=== PATIENT | female | born 1960 | race Caucasian/White ===

== ENCOUNTER 2018-11-08 06:48 | Emergency (ER) | payer BC, MEDICAID ==
[2018-11-08] MEDS ORDERED: TOPICAL LIDOCAINE W/ EPI 5 ML TOP ONE (07:29)
--- NOTE | 2018-11-08 07:29 | Emergency Department Record ---
History of Present Illness - General Chief Complaint: Laceration(s) Stated Complaint: RIGHT FOOT LAC Time Seen by Provider: 11/08/18 07:22 Source: Patient Mode of Arrival: Ambulatory - History of Present Illness Initial Commments: The patient cut the top of her right foot about an hour ago as she was attempting to put her foot onto the sapna runner of her truck. Tetanus is UTD f rom 2015. Onset/Timin -: Minutes(s) Place: Home Context: Accidental Associated Symptoms: None - [place] Coma Scale Eye Response: (4) Open spontaneously Motor Response: (6) Obeys commands Verbal Response: (5) Oriented Andreina Total: 15 - Related Data Hx Tetanus Toxoid Vaccination: Yes Year of Tetanus Vaccination: 2016 Patient Tetanus UTD (within 5 yrs): Yes Home Medications Medication Instructions Recorded Confirmed Last Taken No Home Med [NO HOME MEDS] 11/08/18 11/08/18 Unknown Allergies Allergy/AdvReac Type Severity Reaction Status Date / Time ceftriaxone [From Rocephin] Allergy DIFFICULTY Verified 11/08/18 06:52 BREATHING cephalexin [From Keflex] Allergy DIFFICULTY Verified 11/08/18 07:11 BREATHING levofloxacin [From Levaquin] Allergy DIFFICULTY Verified 11/08/18 06:52 BREATHING Penicillins Allergy DIFFICULTY Verified 11/08/18 06:52 BREATHING Travel Screening - Travel/Exposure Within Last 30 Days Have you traveled within the last 30 days?: No - Travel Symptoms Symptom Screening: None Review of Systems Reviewed: No additional complaints except as noted below Constitutional: Reports: As per HPI. Denies: Chills, Fever, Malaise, Night sweats, Weakness, Weight change Eyes: Reports: As per HPI. Denies: Eye discharge, Eye pain, Photophobia, Vision change ENT: Reports: As per HPI. Denies: Congestion, Dental pain, Ear pain, Epistaxis, Hearing loss, Throat pain Respiratory: Reports: As per HPI. Denies: Cough, Dyspnea, Hemoptysis, Stridor, Wheezes Cardiovascular: Reports: As per HPI. Denies: Arrhythmia, Chest pain, Dyspnea on exertion, Edema, Murmurs, Orthopnea, Palpitations, Paroxysmal nocturnal dyspnea, Rheumatic Fever, Syncope Endocrine: Reports: As per HPI. Denies: Fatigue, Heat or cold intolerance, Polydipsia, Polyuria Gastrointestinal: Reports: As per HPI. Denies: Abdominal pain, Constipation, Diarrhea, Hematemesis, Hematochezia, Melena, Nausea, Vomiting Genitourinary: Reports: As per HPI. Denies: Abnormal menses, Discharge, Dyspareunia, Dysuria, Frequency, Hematuria, Incontinence, Retention, Urgency Musculoskeletal: Reports: As per HPI. Denies: Arthralgia, Back pain, Gout, Joint swelling, Myalgia, Neck pain Skin: Reports: As per HPI. Denies: Bruising, Change in color, Change in hair/nails, Lesions, Pruritus, Rash Neurological: Reports: As per HPI. Denies: Abnormal gait, Confusion, Headache, Numbness, Paresthesias, Seizure, Tingling, Tremors, Vertigo, Weakness Psychiatric: Reports: As per HPI. Denies: Anxiety, Auditory hallucinations, Depression, Homicidal thoughts, Suicidal thoughts, Visual hallucinations Hematological/Lymphatic: Reports: As per HPI. Denies: Anemia, Blood Clots, Easy bleeding, Easy bruising, Swollen glands Past Medical History - SOCIAL HISTORY Smoking Status: Never smoker Alcohol Use: None Drug Use: None - RESPIRATORY Hx Respiratory Disorders: No - CARDIOVASCULAR Hx Cardio Disorders: No - NEURO Hx Neuro Disorders: No - GI Hx GI Disorders: No - Hx Genitourinary Disorders: No - ENDOCRINE Hx Endocrine Disorders: No - MUSCULOSKELETAL Hx Musculoskeletal Disorders: No - PSYCH Hx Psych Problems: No - HEMATOLOGY/ONCOLOGY Hx Hematology/Oncology Disorders: No Family Medical History Any Significant Family History?: No Family Hx Comment (NOT TO BE USED IN PLACE OF ITEMS BELOW): denies Physical Exam - General General Appearance: Alert, Oriented x3, Cooperative, Mild distress - Head Head exam: Normal inspection - Eye Eye exam: Normal appearance, PERRL, EOMI. negative: Conjunctival injection Pupils: Normal accommodation - ENT ENT exam: Normal exam, Mucous membranes moist, Normal external ear exam Ear exam: Normal external inspection. negative: External canal tenderness Nasal Exam: Normal inspection. negative: Discharge, Sinus tenderness Mouth exam: Normal external inspection, Tongue normal Teeth exam: Normal inspection. negative: Dental caries Throat exam: Normal inspection. negative: Tonsillar erythema, Tonsillar exudate - Neck Neck exam: Normal inspection, Full ROM. negative: Lymphadenopathy, Tenderness - Respiratory Respiratory exam: negative: Respiratory distress - Cardiovascular Cardiovascular Exam: Regular rate, Normal rhythm, Normal heart sounds - GI/Abdominal GI/Abdominal exam: Soft, Normal bowel sounds. negative: Tenderness - Rectal Rectal exam: Deferred - exam: Deferred - Extremities Extremities exam: Normal inspection, Full ROM, Normal capillary refill. negative: Calf tenderness, Pedal edema, Tenderness Image of Feet: 1 - linear laceration dorsal foot 8 cm - Back Back exam: Reports: Normal inspection, Full ROM. Denies: Muscle spasm, Rash noted, Tenderness - Neurological Neurological exam: Alert, Normal gait, Oriented X3, Reflexes normal - Psychiatric Psychiatric exam: Normal affect, Normal mood - Skin Skin exam: Dry, Intact, Normal color, Warm Course Vital Signs 11/08/18 06:54 Temperature 98.8 F Pulse Rate [ 91 H Pulse Ox Probe] Respiratory 18 Rate Blood Pressure 150/103 [Left Arm] Pulse Ox 99 - Reevaluation(s) Reevaluation #1: PROCEDURE: Sterile technique, Prepped, draped, copious irrigation with NS, sub Q depth, no tendons, no FB's, closed skin with #7 running 4.0 prolene. Patient tolerated procedure well. 11/08/18 08:12 Reevaluation #2: Discussed with patient regarding antibiotics for this wound. Patient in agreement that no antibiotics due to her allergic reactions to them. She will watchn diligently for signs of infection. 11/08/18 08:19 Medical Decision Making - Management Options MDM Management: No Additional Work-up Planned (Sutures out 14 days.) Disposition Disposition: Discharge Clinical Impression: Laceration of foot Qualifiers: Encounter type: initial encounter Laterality: right Qualified Code(s): S91.311A - Laceration without foreign body, right foot, initial encounter Disposition: Home, Self-Care Condition: (1) Good Instructions: Laceration (ED), Care For Your Stitches (ED) Additional Instructions: Keep wound clean, dry, and covered. Elevate foot first 48 hours, then minimal ambulation until pain is well controlled. Tylenol alternated with ibuprofen as directed as needed for pain. Suture removal 14 days. Signs of infection include redness, warmth, swelling, drainage, and increased pain. Recheck sooner if concerns for this. Quality - Quality Measures Quality Measures: N/A - Blood Pressure Screening Does Patient Have Any of the Following: No Blood Pressure Classification: Hypertensive Reading Systolic Measurement: 150 Diastolic Measurement: 103 Screening for High Blood Pressure: < First Hypertensive BP, F/U Documented > [G8950] First Hypertensive Follow-up Interventions: Follow-up with rescreen GT 1 day and LT 4 weeks., Lifestyle modifications., Referral to alternative/primary care provider. Lifestyle Modification: Weight Reduction
== END 2018-11-08 08:51 | disposition home or self-care (01) ==
LOC: ER 06:48
DX: S91.311A Laceration without foreign body, right foot, initial encounter (principal); W26.8XXA Contact with other sharp object(s), not elsewhere classified, initial encounter
CPT/HCPCS: 12004; 99283; 99284

== ENCOUNTER 2018-11-21 15:10 | Emergency (ER) | payer MEDICAID ==
--- NOTE | 2018-11-21 15:38 | Emergency Department Record ---
History of Present Illness - General Chief Complaint: Suture removal Stated Complaint: SUTURE REMOVAL Time Seen by Provider: 11/21/18 15:17 Source: Patient Mode of arrival: Ambulatory Limitations: No limitations - History of Present Illness Initial Comments: The patient is here for suture removal. She feels the wound may be a little red around it. Complaint: Suture/staple removal Onset/Timin -: Week(s) Symptoms Since Prior Visit: Worsening redness Associated Symptoms: None - Related Data Allergies Allergy/AdvReac Type Severity Reaction Status Date / Time ceftriaxone [From Rocephin] Allergy DIFFICULTY Verified 11/21/18 15:20 BREATHING cephalexin [From Keflex] Allergy DIFFICULTY Verified 11/21/18 15:20 BREATHING levofloxacin [From Levaquin] Allergy DIFFICULTY Verified 11/21/18 15:20 BREATHING Penicillins Allergy DIFFICULTY Verified 11/21/18 15:20 BREATHING Travel Screening - Travel/Exposure Within Last 30 Days Have you traveled within the last 30 days?: No Review of Systems Constitutional: Denies: Chills, Fever Past Medical History - SOCIAL HISTORY Smoking Status: Never smoker Alcohol Use: None Drug Use: None - RESPIRATORY Hx Respiratory Disorders: No - CARDIOVASCULAR Hx Cardio Disorders: No - NEURO Hx Neuro Disorders: No - GI Hx GI Disorders: No - Hx Genitourinary Disorders: No - ENDOCRINE Hx Endocrine Disorders: No - MUSCULOSKELETAL Hx Musculoskeletal Disorders: No - PSYCH Hx Psych Problems: No - HEMATOLOGY/ONCOLOGY Hx Hematology/Oncology Disorders: No Family Medical History Any Significant Family History?: No Family Hx Comment (NOT TO BE USED IN PLACE OF ITEMS BELOW): denies Physical Exam - General General Appearance: Alert, Cooperative, No acute distress - Extremities Extremities exam: negative: Normal inspection (There is a healing laceration to the top of the R foot. There is very minimal surrounding erythema around the sutures but no signs of cellulitis. The sutures were removed with out difficulty and steri strips applied.) Course Vital Signs 11/21/18 15:19 Temperature 98.1 F Pulse Rate [ 61 Pulse Ox Probe] Respiratory 20 Rate Blood Pressure 135/70 [Left Arm] Pulse Ox 100 Disposition Disposition: Discharge Clinical Impression: Visit for suture removal Disposition: Home, Self-Care Condition: (2) Stable Instructions: Stitches Removal (ED) Additional Instructions: Keep dry for 2 days then no soaking. Please see your family doctor for recheck later this week. Return to the ER for any problems. Forms: Patient Portal Access Time of Disposition: 15:38 Quality - Quality Measures Quality Measures: N/A - Blood Pressure Screening View Details: Yes Does Patient Have Any of the Following: No Blood Pressure Classification: Pre-Hypertensive BP Reading Systolic Measurement: 135 Diastolic Measurement: 70 Screening for High Blood Pressure: < Pre-Hypertensive BP, F/U Documented > [G8950] Pre-Hypertensive Follow-up Interventions: Referral to alternative/primary care provider.
== END 2018-11-21 15:52 | disposition home or self-care (01) ==
LOC: ER 15:10
DX: Z48.02 Encounter for removal of sutures (principal)